=== PATIENT | female | born 1990 | race Caucasian/White ===

== ENCOUNTER 2020-06-10 18:51 | Emergency (ER) | payer OTHER, SELFPAY ==
[2020-06-10 19:05] VITALS: BP 122/86; PULSE 90; RESP 18; TEMP 36.9; O2SAT 99; BMI 37.8
--- NOTE | 2020-06-10 19:09 | DI.RAD.S_ITS ---
PROCEDURE: XR KNEE RT 3V INDICATIONS: fall while running TECHNIQUE: 3 views of the knee were acquired. COMPARISON: None. FINDINGS: Bones: No fractures or dislocations. No suspicious bony lesions. Soft tissues: No joint effusion. No suspicious soft tissue calcifications. IMPRESSION: No acute osseous abnormality. Dictated by: Jabari See M.D. on 06/10/2020 at 19:59 Approved by: Jabari See M.D. on 06/10/2020 at 19:59
--- NOTE | 2020-06-10 19:29 | ED.LOWEXIN ---
HPI - Extremity Injury (Lower) General Chief Complaint: Extremity Injury, Lower Stated Complaint: right knee injury from kick ball Time Seen by Provider: 06/10/20 19:27 Source: patient Mode of arrival: Family Vehicle Limitations: no limitations History of Present Illness HPI Narrative: 29-year-old woman with a history of hypothyroidism who was playing [employer] ball and in running from 1st to 2nd base she had a twisting turning injury of the right knee that was severe enough that she had to sit down. When she tried to stand and bear weight the pain was severe enough that she had an episode of emesis. She has never had similar injuries and has never had surgery on this knee. She notes some minor swelling and presents to the ER for further evaluation Related Data Previous Rx's Medication Instructions Recorded oxycodone-acetaminophen 1 tab PO Q6H PRN #10 tab 06/10/20 Allergies Allergy/AdvReac Type Severity Reaction Status Date / Time No Known Drug Allergies Allergy Verified 06/10/20 19:04 Review of Systems Review of Systems Narrative: Pertinent positive and negative findings as per HPI Remainder of review of systems is otherwise unremarkable for Constitutional: Fevers, chills, weakness ENT: No sore throat, neck pain, ear pain CV: Chest pain, palpitations, Respiratory: Cough, wheeze, dyspnea GI: Nausea, vomiting, diarrhea, : Dysuria, hematuria, Patient History Medical History (Updated 06/10/20 @ 20:14 by Preciuos Rivas MD) Hypothyroid Social History Smoking Status: Never smoker Smoking Status: Never smoker alcohol intake frequency: 0-2 drinks per day Substance Use Type: marijuana Exam Narrative Exam Narrative: General: Alert appropriate in no acute distress Respiratory: Able to speak in full sentences, no obvious respiratory distress Skin: No obvious rashes, warm and dry Neurologic: Grossly intact no obvious asymmetries or abnormalities Psych, appropriate insight and affect, cooperative Extremity: Mild diffusion to the right knee. She is able to extend fully with minor pain and flex to 45?. There is no significant swelling to the calf or ankle. No contusions or hematomas. She has some tenderness along the lateral collateral ligament and enough swelling that full testing for cruciate ligaments is challenging. She does have a sensation of knee instability when she stands Initial Vital Signs Initial Vital Signs: Vital Signs Temperature 98.5 F 04/16/21 19:05 Pulse Rate 90 06/10/20 19:05 Respiratory Rate 18 06/10/20 19:05 Blood Pressure 122/86 06/10/20 19:05 Pulse Oximetry 99 06/10/20 19:05 Procedures Orthopedic Splinting/Casting Right knee injury: Side: right Lower Extremity Injury Location: knee Lower Extremity Immobilizer: knee immobilizer Other Orthopedic Equipment: crutches Post splinting neuro exam: intact Post splinting vascular exam: intact Placed by: Nursing Course Orders Ordered: ED Orders 06/10/20 19:09 XR knee RT 3V Stat Discontinued Medications Acetaminophen (Acetaminophen 325 Mg Tablet) 325 mg PO NOW ONE Stop: 06/10/20 19:48 Last Admin: 06/10/20 19:55 Dose: 325 mg Documented by: [facility] Ibuprofen (Ibuprofen 400 Mg Tablet) 400 mg PO NOW ONE Stop: 06/10/20 19:48 Last Admin: 06/10/20 19:55 Dose: 400 mg Documented by: [facility] Vital Signs Vital signs: Vital Signs - 8 hr 06/10/20 19:05 Temperature 98.5 F Pulse Rate 90 Respiratory Rate 18 Blood Pressure 122/86 Pulse Oximetry 99 MDM - Extremity Injury (Lower) Medical Records Attestation: I reviewed the patient's medical records. Imaging Data X-ray knee: Radiologist's Impression: FINDINGS: Bones: No fractures or dislocations. No suspicious bony lesions. Soft tissues: No joint effusion. No suspicious soft tissue calcifications. IMPRESSION: No acute osseous abnormality. Dictated by: Jabari See M.D. on 06/10/2020 at 19:59 MDM Narrative Medical decision making narrative: 29-year-old woman with likely internal derangement of the knee given the am mechanism than action, the acute pain and a sensation of joint instability with weight-bearing. She is placed in a knee stabilizer, given crutches please ibuprofen and Tylenol for pain control and will ask her to follow-up with Ortho next week for definitive care and diagnosis. She is safe for home discharge Discharge Plan Departure Patient Disposition: Home Clinical Impression: Knee Injury Qualifiers: Encounter type: initial encounter Laterality: right Qualified Code(s): S89.91XA - Unspecified injury of right lower leg, initial encounter Instructions: DI for Knee Pain Activity Restrictions/Additional Instructions: Thank you for coming in today Your x-ray did not show any bony injury however with your description of the injury, the pain and the continued sensation of instability I am concerned that you have injured some of the ligaments. Please keep the knee immobilizer in place and use crutches, I do not want you to try to bear weight, have the knee give out and worsen the injury Using 400 mg of ibuprofen (2 [id number] pills) and 1 Tylenol every 6 hours can be very helpful in controlling pain. Please follow-up with [facility]. New call to schedule an appointment on Saturday, explain that you are in the emergency room have an acute knee injury and need further evaluation. If you have worsening problems, please feel free to return to the emergency department Prescriptions: New oxycodone-acetaminophen 5-325 mg tablet 1 tab PO Q6H PRN (Reason: pain) Qty: 10 RF: 0 Referrals: Dennis Montanez MD [Physician] -
[2020-06-10] MEDS: ACETAMINOPHEN 325 MG TABLET PO (19:55)
[2020-06-10] MEDS: IBUPROFEN 400 MG TABLET PO (19:55)
== END 2020-06-10 20:24 | disposition home or self-care (01) ==
PROVIDERS: Emergency Provider Emergency Medicine
DX: S89.91XA Unspecified injury of right lower leg, initial encounter (principal); X50.1XXA Overexertion from prolonged static or awkward postures, initial encounter
CPT/HCPCS: 73562; 99283; 99284

== ENCOUNTER → 2020-07-10 08:43 | Outpatient (CLI) | payer OTHER, SELFPAY ==
--- NOTE | 2020-07-10 | DI.MRI.S_ITS ---
PROCEDURE: MR KNEE RT WO CON INDICATIONS: Unspecified internal derangement of right knee TECHNIQUE: Noncontrast sagittal PD fast spin echo and T2 fast spin echo with fat saturation, sagittal 3-D FLASH with fat saturation; coronal T1 spin echo and PD fast spin echo with fat saturation, and axial PD fast spin echo with fat saturation through the knee. COMPARISON: [facility], CR, XR KNEE RT 3V, 06/10/2020, 19:16. FINDINGS: Image quality: Excellent. Menisci: The medial and lateral menisci demonstrate normal morphology and internal signal. The meniscal root ligaments appear intact. Cruciate ligaments: There is full-thickness tearing of the anterior cruciate ligament. Posterior cruciate ligament is intact. Medial structures: The medial collateral ligament appears intact. Visualized portions of the pes anserinus tendons appear normal. No abnormal bursal fluid. Lateral structures: The lateral collateral ligament demonstrates moderate T2 signal elevation within its substance at the femoral origin, with moderate surrounding ill-defined T2 signal elevation. The long and short heads of the biceps femoris tendon appear intact. The popliteus tendon appears normal. Iliotibial band appears normal. Anterior structures: The quadriceps and patellar tendons appear intact. Patellar alignment is normal. No femoral trochlear dysplasia or ventral trochlear prominence. No edema in the infrapatellar fat pad. Bones and cartilage: No bone marrow contusions or fractures. Moderate T2 signal elevation within the posterior weight-bearing aspect of the medial tibial plateau with underlying ill-defined curvilinear low T2 signal intensity spanning roughly 7 mm oblique anteroposterior. There is mild ill-defined T2 signal elevation within the posterior weight-bearing aspects of the lateral tibial plateau. There is a high-grade articular cartilage fissure overlying the medial patellar facet measuring roughly 2 mm. Joint space: There is a small knee joint effusion and a trace Walker's cyst. Normal appearing synovial plicae are incidentally noted. IMPRESSION: 1. Full-thickness anterior cruciate ligament tear. 2. Nondisplaced fracture of the posterior weight-bearing aspect of the medial tibial plateau with surrounding contusion. Contusion within the lateral tibial plateau posteriorly. 3. Partial thickness lateral collateral ligament tear with associated lateral collateral ligament strain. 4. Knee joint effusion and Walker's cyst. 5. High-grade articular cartilage fissure overlying the medial patellar facet. Dictated by: Elisha Meneses M.D. on 07/11/2020 at 8:57 Approved by: Elisha Meneses M.D. on 07/11/2020 at 9:00 There is moderate ill-defined
== END ==
PROVIDERS: Referring Provider Orthopaedic Surgery; Visit Provider Orthopaedic Surgery
DX: S83.511A Sprain of anterior cruciate ligament of right knee, initial encounter (principal); S82.144A Nondisplaced bicondylar fracture of right tibia, initial encounter for closed fracture; S83.421A Sprain of lateral collateral ligament of right knee, initial encounter; M25.461 Effusion, right knee; M71.21 Synovial cyst of popliteal space [Baker], right knee
CPT/HCPCS: 73721